=== PATIENT | male | born 1945 | race Caucasian/White ===

== ENCOUNTER → 2019-05-08 | Day surgery (SDC) | payer MEDICARE ==
[2019-05-08 13:31] LABS: RBC Count-Automated (BF) 7688 /cumm; WBC/Nucleated-Auto (BF) 26234 uL
[2019-05-08 13:32] LABS: BF Color Yellow; Body Fluid Source Synovial Fluid; Clarity Cloudy/Turbid (Clear)
[2019-05-08 13:52] LABS: BF Segmented Neutrophils 98 %; Cell Count Non Hematic 1 %; Lymphocytes 1 %
--- NOTE | 2019-05-08 14:53 | NM ---
NUCLEAR MEDICINE BONE SCAN 3 PHASE AND WHOLE BODY: (Skeletal scintigraphy) DATE: 05/08/2019 HISTORY: 74-year-old male with right hip pain. Suspected septic joint. TECHNIQUE: IV injection of technetium 99m-MDP: 31.7 mCi. Dynamic flow scintigraphy of pelvis. Static blood pool images of pelvis. 3 hour delayed whole body skeletal scintigraphy in anterior and posterior views. FINDINGS: There is increased blood flow and increased soft tissue uptake around the right hip, consistent with cellulitis. There is photopenic defect in the region of the right femoral head representing metallic prosthesis. Adjacent to this prosthesis, there is strongly increased three-hour bone uptake throughout the right acetabulum, and throughout the greater and lesser trochanters and intertrochanteric region down to the subtrochanteric level. Small focus of increased uptake at one of the levels in the upper-mid thoracic spine, approximately T 5, or T6, or T7. Small focus of mildly increased uptake at the contralateral left greater trochanter, nonspecific. No other asymmetrical foci of increased uptake. 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
--- NOTE | 2019-05-08 16:24 | CT ---
CT guided right hip aspiration: DATE: 05/08/2019 HISTORY: 74-year-old male with persistent right hip pain status post arthroplasty. TECHNIQUE: Signed informed consent obtained. Right groin skin prepped and draped in usual sterile fashion. 25-ga uge needle used to apply buffered lidocaine superficially. 22-gauge spinal needle advanced under step CT guidance from an anterior approach, targeting the neck component of the right hip replacement prosthesis. Once the needle tip contacted the prosthesis, a syringe was used to aspirate 2 to 5 mL of opaque, yellow joint fluid. This specimen was sent to laboratory for culture and sensitivity. Need le was removed. Patient tolerated procedure well. No complications. IMPRESSION: 1. Successful CT-guided aspiration of right hip. 2. Status post total right hip replacement arthroplasty. 3. Positive for septic arthritis of right hip joint.
== END ==
LOC: CT 08:29
PROVIDERS: ATTEND Orthopaedic Surgery
DX: M00.851 Arthritis due to other bacteria, right hip (principal); Z96.641 Presence of right artificial hip joint
CPT/HCPCS: 73700; 77002; 78315; 87070; 87205; 89051; A9503; 85060

== ENCOUNTER 2019-05-10 09:21 | Outpatient (CLI) | payer MEDICARE ==
[2019-05-10 16:49] LABS: Prothrombin Time 13.4 SEC (12.0-14.7)
--- NOTE | 2019-05-13 23:12 | EKG ---
Test Reason : Blood Pressure : / mmHG Vent. Rate : 081 BPM Atrial Rate : 081 BPM P-R Int : 170 ms QRS Dur : 086 ms QT Int : 392 ms P-R-T Axes : 009 038 003 degrees QTc Int : 455 ms Normal sinus rhythm Nonspecific T wave abnormality Abnormal ECG No previous ECGs available Confirmed by DARCI ROPER M.D. ([id number]) on 05/13/2019 11:12:06 PM Referred By: MATA Confirmed By:DARCI ROPER M.D.
== END 2019-05-10 09:22 | disposition home or self-care (01) ==
LOC: LABBT 09:21
PROVIDERS: ATTEND Orthopaedic Surgery
DX: Z01.818 Encounter for other preprocedural examination (principal); T84.51XA Infection and inflammatory reaction due to internal right hip prosthesis, initial encounter
CPT/HCPCS: 85610; 87081; 93005; 93010

== ENCOUNTER 2019-05-10 15:15 | Inpatient (IN) | payer MEDICARE ==
[2019-05-10 15:24] VITALS: BMI 32.6
[2019-05-10 16:43] LABS: Hemoglobin 14.9 g/dL (14.0-18.0); Mean Corpuscular HGB CONC 33.6 g/dL (32.0-36.0); Mean Corpuscular Hemoglobin 32.1 pg (27.0-31.0); Mean Corpuscular Volume 95.7 fL (78.0-98.0); Mean Platelet Volume 6.9 fL (7.4-10.4); Platelet Count 348 thou/uL (130-400); RBC Distribution Width 11.8 % (11.5-14.5); Red Blood Cell (RBC) Count 4.62 mill/uL (4.70-6.10)
[2019-05-10 17:06] LABS: Anion Gap 14 mmol/L (10-20); BUN (Urea Nitrogen) 23 mg/dL (8.4-25.7); Calc. Creatinine Clearance 0 mL/min (70-130); Carbon Dioxide 27 mmol/L (23-31); Chloride 101 mmol/L (98-107); Estimated GFR-MDRD 69; Glucose 115 mg/dL (83-110); Potassium 4.3 mmol/L (3.5-5.1); Sodium 138 mmol/L (136-145)
[2019-05-14] MEDS ORDERED: Tranexamic Acid 1,000 MG/10 ML VIAL ONE (10:02)
[2019-05-14] MEDS ORDERED: Sodium Chloride 0.9% 100 ML ONE (10:02)
[2019-05-14] MEDS ORDERED: Vancomycin HCl 1.5 GM in Sodium Chloride 0.9% 250 ML 300 ML IVPB SCH ×2 (10:15→10:30)
[2019-05-14] MEDS ORDERED: Promethazine HCl 25 MG/ML VIAL IM PRN ×3 (10:19→16:16)
[2019-05-14] MEDS ORDERED: Ondansetron PF 4 MG/2 ML Vial IVP PRN ×2 (10:19→11:45)
[2019-05-14] MEDS ORDERED: HYDROcodone/Acetaminophen 10/325 mg Tablet PO PRN ×2 (10:19)
[2019-05-14] MEDS ORDERED: Zolpidem Tartrate 5 MG TAB PO PRN ×2 (10:19→11:45)
[2019-05-14] MEDS ORDERED: diphenhydrAMINE 25 MG CAP PO PRN ×2 (10:19→11:45)
[2019-05-14] MEDS ORDERED: Acetaminophen 325 MG TAB PO PRN (10:19)
[2019-05-14] MEDS ORDERED: Fentanyl 100 MCG/2 ML VIAL ONE ×3 (11:07→16:28)
[2019-05-14] MEDS ORDERED: Midazolam HCl 2 mg/2 ml Vial ONE (11:07)
[2019-05-14] MEDS ORDERED: Scopolamine 1.5 mg/72 hour Patch ONE (11:33)
[2019-05-14] MEDS ORDERED: Acetaminophen 500 MG TAB PO PRN (11:38)
[2019-05-14] MEDS ORDERED: diphenhydrAMINE 50 MG/ML VIAL IVP PRN (11:45)
[2019-05-14] MEDS ORDERED: Naloxone HCl 0.4 mg/ml Vial IV PRN (11:45)
[2019-05-14] MEDS ORDERED: Naloxone HCl 0.4 mg/ml Vial IVP PRN (11:45)
[2019-05-14] MEDS ORDERED: Bupivacaine 0.25% 10 ML VIAL EPIDURAL PRN (11:45)
[2019-05-14] MEDS ORDERED: diphenhydrAMINE 50 MG/ML VIAL IM PRN (11:45)
[2019-05-14] MEDS ORDERED: Hydrocerin (Eucerin) Cream 120 gm Jar TOP PRN (11:45)
[2019-05-14] MEDS ORDERED: Promethazine HCl 25 MG SUPP PR PRN (11:45)
[2019-05-14] MEDS ORDERED: Scopolamine 1.5 mg/72 hour Patch TOP SCH (11:45)
[2019-05-14] MEDS ORDERED: traMADol HCl 50 MG TAB PO PRN (11:45)
[2019-05-14] MEDS ORDERED: Fentanyl 5 mcg/Bup 0.075% Cadd 100 ML EPIDURAL SCH (11:45)
[2019-05-14] MEDS ORDERED: Tobramycin Sulfate 1.2 GM VIAL ONE (12:18)
[2019-05-14] MEDS ORDERED: Ropivacaine 0.2% HCl/PF 20 ML ONE (12:49)
[2019-05-14] MEDS ORDERED: PROPOFOL 200 MG/20 ML VIAL ONE (15:16)
[2019-05-14] MEDS ORDERED: ePHEDrine 50 MG/ML VIAL ONE (15:16)
[2019-05-14] MEDS ORDERED: PHENYLEPHRINE-NS 100 MCG/ML 10 ML SYRINGE ONE (15:16)
[2019-05-14] MEDS ORDERED: Glycopyrrolate 0.2 MG/ML 5 ML SYRINGE ONE (15:16)
[2019-05-14] MEDS ORDERED: Ondansetron PF 4 MG/2 ML Vial ONE (15:16)
[2019-05-14] MEDS ORDERED: HYDROmorphone 2 MG/ML VIAL SLOW IVP PRN (16:16)
[2019-05-14] MEDS ORDERED: Promethazine HCl 25 MG/ML VIAL SLOW IVP PRN (16:16)
[2019-05-14] MEDS ORDERED: Morphine Sulfate 2 MG/ML SYRINGE SLOW IVP PRN (16:16)
[2019-05-14] MEDS ORDERED: Ondansetron HCl/PF 4 MG/2 ML Vial IVP PRN (16:16)
[2019-05-14] MEDS ORDERED: PACU-Morphine 4MG/ML VIAL SLOW IVP PRN (16:16)
[2019-05-14] MEDS ORDERED: Meperidine HCl/PF 25 MG/ML VIAL SLOW IVP PRN (16:16)
[2019-05-14] MEDS ORDERED: SUGAMMADEX SODIUM 200 MG/2 ML VIAL ONE (16:19)
--- NOTE | 2019-05-14 16:54 | RAD ---
RIGHT HIP: 05/14/19 Two views taken portably. INDICATIONS: Postop hip replacement evaluation. FINDINGS/IMPRESSION: Postop changes are noted. Prosthesis has been placed. Components appear in adequate position and alig nment. POS: THALIA
[2019-05-14] MEDS: Sodium Chloride 0.9% 1,000 ML IV SCH ×3 (18:08→20:41)
[2019-05-14] MEDS ORDERED: Acetaminophen 650 MG Suppository PR PRN (18:18)
[2019-05-14] MEDS ORDERED: Dextrose 50% Abboject 50 ML SYRINGE SLOW IVP PRN (18:29)
[2019-05-14] MEDS ORDERED: HumaLOG 300 UNITS/3 ML VIAL SC PRN ×2 (18:29)
[2019-05-14] MEDS ORDERED: Dextrose 5% in Water 1,000 ML IV PRN (18:29)
[2019-05-14] MEDS: Ketorolac Tromethamine 30 MG/ML VIAL IVP PRN (18:46)
[2019-05-14 19:20] LABS: #Lymphocytes 0.9 thou/uL (1.20-3.40); #Monocytes 1.1 thou/uL (0.11-0.59); #Neutrophils 14.7 thou/uL (1.40-6.50); %Basophils 0.1 % (0.0-1.0); %Eosinophils 0.3 % (0.0-10.0); %Lymphocytes 5.5 % (21.0-51.0); %Monocytes 6.6 % (0.0-10.0); %Neutrophils 87.6 % (42.0-75.0); Hemoglobin 12.4 g/dL (14.0-18.0); Mean Corpuscular HGB CONC 32.7 g/dL (32.0-36.0); Mean Corpuscular Hemoglobin 31.7 pg (27.0-31.0); Mean Corpuscular Volume 96.8 fL (78.0-98.0); Mean Platelet Volume 7.1 fL (7.4-10.4); Platelet Count 278 thou/uL (130-400); RBC Distribution Width 11.6 % (11.5-14.5); White Blood Cell (WBC) Count 16.7 thou/uL (4.8-10.8)
[2019-05-14 19:37] LABS: Lactic Acid 2.1 mmol/L (0.5-2.2)
[2019-05-14 19:39] LABS: Anion Gap 10 mmol/L (10-20); BUN (Urea Nitrogen) 11 mg/dL (8.4-25.7); Calc. Creatinine Clearance 122 mL/min (70-130); Calcium 8.2 mg/dL (7.8-10.44); Carbon Dioxide 26 mmol/L (23-31); Chloride 106 mmol/L (98-107); Estimated GFR-MDRD Greater than 90; Glucose 153 mg/dL (83-110); Potassium 4.3 mmol/L (3.5-5.1); Sodium 138 mmol/L (136-145)
[2019-05-14] MEDS: Ferrous Gluconate 324 MG TAB PO SCH (20:26)
[2019-05-14] MEDS: Ubidecarenone 50 MG CAP PO SCH (20:26)
[2019-05-14] MEDS: Senokot S 8.6-50 MG TAB PO SCH (20:26)
[2019-05-14] MEDS: Aspirin 81 mg Enteric Coated Tablet PO SCH (20:26)
[2019-05-14] MEDS: Famotidine/PF 20 mg/2ml Vial SLOW IVP SCH (20:27)
[2019-05-14] MEDS: Ezetimibe 10 MG TAB PO SCH (20:27)
[2019-05-14] MEDS: Rosuvastatin 20 MG TAB PO SCH (20:27)
[2019-05-14] MEDS ORDERED: Aspirin 81 mg Enteric Coated Tablet PO SCH (21:00)
--- NOTE | 2019-05-14 21:21 | CON ---
DATE OF CONSULTATION: 05/14/2019 TIME OF ASSESSMENT: 1700. REASON FOR CONSULTATION: Medical management. PRIMARY CARE PHYSICIAN: Dr. Waqar Child. HISTORY OF PRESENT ILLNESS: Mr. Gomez is a pleasant 74-year-old gentleman who is status post revision and replacement of right prosthetic hip due to septic joint. According to his significant other, the patient had removal with complete washout and debridement of the joint. Apparently, part of the muscles had to be removed due to the degree of infection. There is no operative note available at this time. Apparently, he last had revision of the right hip prosthesis in March and April of 2018 and more recently found to have recurrent infection after having persistent right hip pain. He underwent CT imaging on 05/08/2019, showing the total right hip replacement arthroplasty with changes consistent for septic arthritis of the right hip joint confirmed by CT-guided aspiration of the right hip. Specimen was sent to the lab and grew rare white blood cells. It was negative for MRSA. The patient had a bone scan done as well showing evidence for septic right hip and surrounding osteomyelitis of the right acetabulum and right proximal femur involving the right total hip replacement arthroplasty. At this present time, the patient states his pain is under control, but he has been experiencing some tightness with his breathing since waking up following surgery. He denies any chest pain. He states he feels slightly short of breath. Denies any cough. He has not yet had anything to eat. He is otherwise without complaints. According to his girlfriend, who was at bedside, he was on diuretics several years ago due to lower extremity edema; however, he was taken off it and felt he no longer required it. He also has a history of prediabetes, is managed with diet. He opted not to be placed on metformin and he states his glucose at home has been controlled under 180s. He also has a history of hypertension and hyperlipidemia. He follows with Dr. Gasca who is his technical implementation lead. REVIEW OF SYSTEMS: The patient denies any nausea or vomiting. Denies any headaches or dizziness. No chest pain or palpitations. Complaining of chills, but according to his girlfriend, he often feels cold. All other review of systems negative. PAST MEDICAL HISTORY: 1. Hypertension. 2. Hyperlipidemia. 3. Prediabetes. 4. Right hip infection. 5. CAD. PAST SURGICAL HISTORY: 1. Left facial reconstruction. 2. Cardiac stents. 3. Tonsillectomy and adenoidectomy. 4. Appendectomy. 5. Right total hip replacement x2. SOCIAL HISTORY: The patient denies any tobacco use. No heavy alcohol use. No drug use. FAMILY HISTORY: Noncontributory. PHYSICAL EXAMINATION: GENERAL: The patient appears well developed and in no acute distress. VITAL SIGNS: . HEENT: Normocephalic and atraumatic. Pupils are equal, round, and reactive to light. Sclerae without icterus. Oral mucosa is dry. He has a fever blister on the right lower lip well healed without any discharge, drainage, or bleeding. NECK: Supple. LUNGS: Clear to auscultation bilaterally. CARDIAC: Regular rate and rhythm. ABDOMEN: Soft, nontender, nondistended. Normoactive bowel sounds present. EXTREMITIES: Without any edema. NEUROLOGIC: Alert and oriented x3. SKIN: Warm and dry. LABORATORY DATA: On 05/10/2019, white count was 9, hemoglobin 14.9, hematocrit 44.2, platelets 348. Sodium 138, potassium 4.3, anion gap 14, BUN 23, creatinine 1.05, GFR 69, glucose 115, calcium 9. IMAGING DATA: As mentioned above. IMPRESSION AND PLAN: 1. Mr. Gomez is a pleasant 74-year-old gentleman who has undergone right total hip replacement x2 due to persistent prosthesis infection. He has now undergone replacement of the prosthesis with complete joint washout due to septic joint. Plans are for him to be seen by Dr. Sena and continue vancomycin. Currently . Currently, his pain is well controlled. Repeat laboratory studies including lactic acid and also BMP given history of fluid overload. . 2. Hypertension. Monitor blood pressure and resume home medications. 3. Prediabetes. Monitor blood glucose and cover with insulin sliding scale given he is usually on steroids. 4. GI prophylaxis. Famotidine . 5. Deep venous thrombosis prophylaxis. Mechanical SCDs only. Contraindication for pharmacoprophylaxis. 6. Code status, full. His surrogate decision maker is his girlfriend, Nunu Cruz. The patient's case to be discussed with attending for further recommendations. . Thank you for this consultation. We will continue to follow this patient with you. Job ID: [id number]
[2019-05-14] MEDS: Vancomycin HCl 1.5 GM in Sodium Chloride 0.9% 250 ML 300 ML IVPB SCH (22:32)
[2019-05-15 04:38] LABS: #Lymphocytes 1.1 thou/uL (1.20-3.40); #Neutrophils 8.3 thou/uL (1.40-6.50); %Basophils 0.3 % (0.0-1.0); %Eosinophils 0.2 % (0.0-10.0); %Lymphocytes 10.6 % (21.0-51.0); %Monocytes 9.1 % (0.0-10.0); %Neutrophils 79.7 % (42.0-75.0); Mean Corpuscular HGB CONC 33.2 g/dL (32.0-36.0); Mean Corpuscular Hemoglobin 32.1 pg (27.0-31.0); Mean Corpuscular Volume 96.6 fL (78.0-98.0); Mean Platelet Volume 7.3 fL (7.4-10.4); Platelet Count 265 thou/uL (130-400); RBC Distribution Width 11.8 % (11.5-14.5); Red Blood Cell (RBC) Count 3.43 mill/uL (4.70-6.10); White Blood Cell (WBC) Count 10.4 thou/uL (4.8-10.8)
[2019-05-15 04:53] LABS: Anion Gap 11 mmol/L (10-20); BUN (Urea Nitrogen) 14 mg/dL (8.4-25.7); Calc. Creatinine Clearance 98 mL/min (70-130); Calcium 7.8 mg/dL (7.8-10.44); Carbon Dioxide 27 mmol/L (23-31); Chloride 104 mmol/L (98-107); Estimated GFR-MDRD 72; Glucose 172 mg/dL (83-110); Potassium 4.7 mmol/L (3.5-5.1); Sodium 137 mmol/L (136-145)
[2019-05-15] MEDS: Aspirin 81 mg Enteric Coated Tablet PO SCH ×2 (08:20→20:06)
[2019-05-15] MEDS: Famotidine/PF 20 mg/2ml Vial SLOW IVP SCH ×2 (08:21→20:07)
[2019-05-15] MEDS: Multivitamin W/ Minerals 1 TAB PO SCH (08:21)
[2019-05-15] MEDS: Ubidecarenone 50 MG CAP PO SCH ×2 (08:21→20:06)
[2019-05-15] MEDS: Ferrous Gluconate 324 MG TAB PO SCH ×2 (08:21→20:06)
[2019-05-15] MEDS: Losartan 25 MG TAB PO SCH (08:22)
[2019-05-15] MEDS: Senokot S 8.6-50 MG TAB PO SCH ×2 (08:30→20:07)
--- NOTE | 2019-05-15 08:47 | OP ---
DATE OF PROCEDURE: 05/14/2019 PREOPERATIVE DIAGNOSIS: Infected right total hip. PROCEDURES PERFORMED: Revision of right total hip for infection with cemented 60 mm all-polyethylene cup #7, reliance a long stem revision component and a 40 mm +10 head. ROOFER APPLICATOR: Kg Hussein PA-C BLOOD LOSS: About 500. SPECIMEN: Cultures including tissue culture sent. DRAINS: None. COMPLICATION: None. DESCRIPTION OF PROCEDURE: The patient was taken to the operating room, where general anesthesia was induced. Left leg was prepped and draped in usual sterile fashion. He had a previous anterior approach at another [facility]. Chose to use the lateral approach, which was more extensile. Standard anterolateral approach was made. Incision was carried down to the joint, joint was opened and the joint was 4+, which was somewhat thin watery type pus. I performed a complete synovectomy after dislocating the femur and removing the head. The femur was quite difficult to remove and had to perform an osteotomy of the femur, which I then repaired with Dall-Miles cables. The acetabulum was exposed and removed using intermittent cup extraction kit. Irrigation was performed. I reamed the acetabulum up to 60. I mixed up a mixture of tobramycin-laden cement with 3.4 total grams of tobra and 3 g of vancomycin and used this to cement the cup into place. Once the cement was cured, I turned my attention back to the femur and reamed the femur up to a size 14.5 with flexible reamers to completely debride the end ostium of the bone. I used large reamers to ream the proximal femur and scraped all possible infected bone from the femur. #7 stem was then cemented into place. Trial showed a +10 head gave the best leg length with good stability. The permanent stem was impacted in place. Hip was reduced. The femur had been repaired with Dall-Miles cables and this appeared to be a good stable fixation, so they could be already 50% weightbearing, abductors, vastus lateralis, and IT band were interrupted with #2 Vicryl. #2 Quill was then used on the IT band, subcutaneous tissues with 2-0 Vicryl, and skin was closed with 2-0 Prolene. Sterile dressings were applied. There were no complications. Job ID: [id number]
[2019-05-15] MEDS ORDERED: ALPHA LIPOIC ACID 600 MG PO SCH (09:00)
[2019-05-15] MEDS: Sodium Chloride 0.9% 1,000 ML IV SCH ×3 (09:06→23:15)
--- NOTE | 2019-05-15 10:05 | PDOC.HOSPP ---
- Subjective Encounter Date: 05/15/19 Encounter Time: 10:03 Subjective: Doing well, just had shower. - Objective Vital Signs & Weight: Vital Signs (12 hours) Temp Pulse Resp BP Pulse Ox 05/15/19 08:20 94 L 05/15/19 08:19 98.5 F 109 H 18 101/66 94 L 05/15/19 03:22 98.9 F 100 16 99/64 95 05/14/19 22:56 98.8 F 98 16 100/65 93 L Weight Weight 234 lb I&O: 05/14/19 05/15/19 05/16/19 06:59 06:59 06:59 Intake Total 1040 320 Output Total 425 Balance 615 320 Result Diagrams: 05/15/19 04:00 05/15/19 04:00 Additional Labs: Accuchecks 05/15/19 05/14/19 05:25 21:13 POC Glucose 174 H 139 H Hospitalist ROS - Medication Medications: Active Medications Generic Name Dose Route Start Last Admin Trade Name Eben PRN Reason Stop Dose Admin Aspirin 81 mg 05/14/19 21:00 05/15/19 08:20 Ecotrin PO 81 mg BID ELZBIETA Administration Cholecalciferol 1,000 units 05/14/19 21:00 05/15/19 08:21 Vitamin D3 PO 1,000 units BID ELZBIETA Administration Coenzyme Q10 50 mg 05/14/19 21:00 05/15/19 08:21 Coenzyme Q10 PO 50 mg BID ELZBIETA Administration Ezetimibe 10 mg 05/14/19 21:00 05/14/19 20:27 Zetia PO 10 mg HS ELZBIETA Administration Famotidine 20 mg 05/14/19 21:00 05/15/19 08:21 Pepcid SLOW IVP 20 mg Q12HR ELZBIETA Administration Ferrous Gluconate 324 mg 05/14/19 21:00 05/15/19 08:21 Fergon PO 324 mg BID ELZBIETA Administration Fentanyl Citrate 100 mls @ 6 mls/hr 05/14/19 11:45 05/15/19 05:42 Fentanyl/Bupivacaine EPIDURAL 100 mls INF ELZBIETA Administration As Directed Vancomycin HCl 1.5 gm/ Sodium 300 mls @ 200 mls/hr 05/14/19 23:00 05/14/19 22 :32 Chloride IVPB 300 mls 1100,2300 ELZBIETA Administration Sodium Chloride 1,000 mls @ 65 mls/hr 05/14/19 19:45 05/14/19 20:23 Normal Saline 0.9% IV 1,000 mls .[id number] ELZBIETA Administration Iron/Minerals/Multivitamins 1 tab 05/15/19 09:00 05/15/19 08:21 Theragran M PO 1 tab DAILY ELZBIETA Administration Ketorolac Tromethamine 15 mg 05/14/19 11:45 05/14/19 18:46 Toradol IVP 05/17/19 11:46 15 mg Q6H PRN Administration Moderate Pain (4-6) Losartan Potassium 50 mg 05/15/19 09:00 05/15/19 08:22 Cozaar PO Not Given DAILY ELZBIETA Metoprolol Succinate 25 mg 05/14/19 21:00 05/14/19 20:25 Toprol Xl PO Not Given HS ELZBIETA Rosuvastatin Calcium 40 mg 05/14/19 21:00 05/14/19 20:27 Crestor PO 40 mg HS ELZBIETA Administration Senna/Docusate Sodium 2 tab 05/14/19 21:00 05/15/19 08:30 Senokot S PO Not Given BID ELZBIETA - Exam General Appearance: NAD, awake alert, ill appearing Eye: PERRL, anicteric sclera, scleral icterus ENT: normocephalic atraumatic, no oropharyngeal lesions, moist mucosa, dry oral mucosa Neck: supple, symmetric, no JVD, no thyromegaly, no lymphadenopathy, no carotid bruit, JVD Heart: RRR, no murmur, no gallops, no rubs, normal peripheral pulses, irregular , diminshed peripheral pulses, murmur present, II/IV, III/IV Respiratory: CTAB, no wheezes, no rales, no ronchi, normal chest expansion, no tachypnea, normal percussion, rales, rhonchi, tachypneic, wheezes Gastrointestinal: soft, non-tender, non-distended, normal bowel sounds, no palpable masses, no hepatomegaly, no splenomegaly, no bruit, no guarding, no rigidity, tender to palpation, distended, diminished bowl sounds, voluntary guarding Hosp A/P (1) Leukocytosis Code(s): D72.829 - ELEVATED WHITE BLOOD CELL COUNT, UNSPECIFIED Status: Acute Plan: the WBC imroved, continue current antibiotics (2) HTN (hypertension) Code(s): I10 - ESSENTIAL (PRIMARY) HYPERTENSION Status: Acute Plan: continue current regimen
[2019-05-15] MEDS: Vancomycin HCl 1.5 GM in Sodium Chloride 0.9% 250 ML 300 ML IVPB SCH ×2 (11:14→22:01)
[2019-05-15] MEDS: Bupivacaine 10 ML in Sodium Chloride 0.9% 90 ML EPIDURAL SCH (16:35)
--- NOTE | 2019-05-15 16:40 | CON ---
DATE OF CONSULTATION: 05/15/2019 REASON: Right hip infection. HISTORY OF PRESENT ILLNESS: A 74-year-old gentleman known to me from prior visits at [facility] and my clinic who has a history of type 2 diabetes, hypertension, hyperlipidemia, and had a previous hip prosthesis placed in [facility]. He had a revision with washout in March 2018, Propionibacterium species was retrieved from the cultures. He was treated with vancomycin and then transitioned to oral suppressive therapy with doxycycline which he had been taken until this admission. He was having some stiffness but not much pain. No fever or chills. His CRP was down to 0.7 and he had continued taking doxycycline faithfully when I last saw him in March. He was not happy with the functional results of the right hip and he wanted a second opinion, so I suggested him to consult with Dr. Melgar, which he did. He had a CT-guided aspirate of the hip and had a small amount of fluid in the joint and Dr. Melgar removed the implant yesterday. The operative report was reviewed. The lateral approach was chosen and incision carried out through the joint, joint opened, and there was some thin watery cloudy fluid. Complete synovectomy was carried out. Head was removed. The femur was difficult to remove and had to perform an osteotomy of the femur and then it was repaired. Acetabulum was exposed and removed and tobramycin with vancomycin cement was placed in the cup. The femur site was reamed to a size of 14.5 and all possible infected bone was removed and the stem was impacted in place, hip reduced. He is a bit confused now. He had some delusional thinking process, he derecognized me. He denies any headaches, no visual symptoms, sore throat, odynophagia, dysphagia, no dyspnea or chest pain. No abdominal pain or diarrhea or genitourinary symptoms except for Sibley catheter. 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 He had been on suppressive doxycycline for the past year or so. Coronary artery disease. SURGICAL HISTORY: Facial reconstruction, cardiac stents, tonsillectomy, appendectomy, hip replacement. SOCIAL HISTORY: Retired. I believe he lives in [place]. Never smoker. No alcoholic beverage use. FAMILY HISTORY: Noncontributory. CURRENT MEDICATIONS: 1. Tylenol. 2. Ecotrin. 3. Vitamin D. 4. Coenzyme Q. 5. Benadryl. 6. Hydrocerin. 7. Fentanyl. 8. Fergon. 9. Glucagon. 10. Theragran. 11. Cozaar. 12. Metoprolol. 13. Zofran. 14. Phenergan. 15. Sodium. 16. Tramadol. 17. Vancomycin. PHYSICAL EXAMINATION: VITAL SIGNS: Temperature max 98.9, blood pressure 96/56, pulse 88, respirations 18, O2 saturation 94 on 2 L nasal cannula. SKIN: Shows the surgical site. I did not remove the dressing. The patient has a peripheral IV access and has a Sibley catheter in place still. LYMPHS: No lymphadenopathy. HEENT: Ocular movements conjugate. Oral cavity normal. NECK: Supple. LUNGS: Symmetric, clear breath sounds. HEART: S1, S2, regular rate. ABDOMEN: Soft, not distended or tender. No ascites. No bladder distention. EXTREMITIES: He moves all 4 extremities with some limitations because of the inflammatory process in right hip and the recent surgical procedure. NEUROLOGIC: He is awake, knows his name. He knew he was in [facility]. His recollection was a little bit faulty and has some delusional thinking process, was a bit delirious. LABORATORY DATA: White cell count is 9.0, went up to 16.7 postoperatively and then 10.4 at this time. Hemoglobin 11, platelets 265 with 79% neutrophils and a creatinine of 1.02. Cultures thus far no growth. Gram stain did not show any organisms. Rare WBCs were seen. 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 He underwent a CT-guided aspirate, which showed the findings suggestive of persistence of infection, had extensive debridement and a new joint placed and we will continue vancomycin assuming that Propionibacterium is the likely pathogen here. After the initial therapy course, we will then transition back to doxycycline suppressive therapy. PICC line placement and probably will end up in rehab for at least 2 weeks and after that then back home with long-term IV therapy. Weekly labs. Job ID: [id number]
[2019-05-15] MEDS: Acetaminophen 325 MG TAB PO SCH ×2 (18:33→23:14)
[2019-05-15] MEDS: Rosuvastatin 20 MG TAB PO SCH (20:07)
[2019-05-15] MEDS: Ezetimibe 10 MG TAB PO SCH (20:07)
[2019-05-15] MEDS: Ketorolac Tromethamine 30 MG/ML VIAL IVP PRN (21:54)
[2019-05-15 22:36] LABS: Vancomycin, Trough 13.3 ug/mL
[2019-05-16] MEDS: Acetaminophen 325 MG TAB PO SCH ×4 (04:59→23:00)
[2019-05-16 05:16] LABS: Hemoglobin 8.7 g/dL (14.0-18.0); Mean Corpuscular HGB CONC 33.9 g/dL (32.0-36.0); Mean Corpuscular Hemoglobin 32.3 pg (27.0-31.0); Mean Corpuscular Volume 95.2 fL (78.0-98.0); Mean Platelet Volume 7.3 fL (7.4-10.4); Platelet Count 203 thou/uL (130-400); RBC Distribution Width 11.5 % (11.5-14.5); Red Blood Cell (RBC) Count 2.69 mill/uL (4.70-6.10); White Blood Cell (WBC) Count 10.6 thou/uL (4.8-10.8)
--- NOTE | 2019-05-16 09:48 | SPC ---
LEFT UPPER EXTREMITY PICC LINE PLACEMENT WITH ULTRASOUND GUIDANCE: HISTORY: Infection. EXPOSURE: 0.4 minutes 4560 mGy/cm2 FINDINGS: Successful left upper cavity PICC line placement. 49 cm trim length. Distal tip is in the SVC/right a trial junction. Single-lumen catheter flushes and aspirates without difficulty. TECHNIQUE: Consent obtained to perform a left upper extremity PICC line placement with ultrasound guidance. The left arm was prepped and draped in a sterile fashion. Lidocaine 1% buffered with sodium bicarbonate was used for local anesthesia. Under ultrasound guidance a micropuncture needle was used to cannulate the basilic vein. A 0.018 guidewire was advanced through the needle to the level of the superior vena cava. Under fluoroscopy, the wire was advanced into the inferior vena cava to document venous ac cess. The wire was subsequently pulled back to the SVC/right atrial junction. The tract was dilated. A single lumen 5 Hungarian catheter was advanced over the wire. The wire was removed. Catheter flushes and aspirates without difficulty. Distal tip is in the SVC/right atrial junction. 49 cm trim length IMPRESSION: Successful left upper extremity peripherally inserted central catheter line placement with ultrasound guidance. Transcribed Date/Time: 05/16/2019 10:15 AM
[2019-05-16] MEDS: Senokot S 8.6-50 MG TAB PO SCH ×2 (09:50→20:14)
[2019-05-16] MEDS: Losartan 25 MG TAB PO SCH (09:50)
[2019-05-16] MEDS: Ferrous Gluconate 324 MG TAB PO SCH ×2 (09:50→20:14)
[2019-05-16] MEDS: Aspirin 81 mg Enteric Coated Tablet PO SCH ×2 (09:50→20:14)
[2019-05-16] MEDS: Ubidecarenone 50 MG CAP PO SCH ×2 (09:50→20:14)
[2019-05-16] MEDS: Multivitamin W/ Minerals 1 TAB PO SCH (09:50)
[2019-05-16] MEDS: Famotidine/PF 20 mg/2ml Vial SLOW IVP SCH ×2 (09:51→20:14)
[2019-05-16] MEDS: Bupivacaine 10 ML in Sodium Chloride 0.9% 90 ML EPIDURAL SCH ×3 (10:57→22:57)
[2019-05-16] MEDS: Vancomycin HCl 1.5 GM in Sodium Chloride 0.9% 250 ML 300 ML IVPB SCH ×2 (11:11→23:01)
--- NOTE | 2019-05-16 15:20 | PDOC.HOSPP ---
- Subjective Encounter Date: 05/16/19 Encounter Time: 15:19 - Objective Vital Signs & Weight: Vital Signs (12 hours) Temp Pulse Resp BP Pulse Ox 05/16/19 12:26 94 L 05/16/19 12:22 98.5 F 102 H 18 112/64 94 L 05/16/19 08:00 99.0 F 87 16 111/66 91 L 05/16/19 03:44 93 L 05/16/19 03:38 98.3 F 81 16 109/71 93 L Weight Weight 234 lb I&O: 05/15/19 05/16/19 05/17/19 06:59 06:59 06:59 Intake Total 1040 4250 120 Output Total 425 1325 875 Balance 247 8546 -907 Result Diagrams: 05/16/19 04:21 05/15/19 04:00 Additional Labs: Accuchecks 05/16/19 05/16/19 05/15/19 11:06 05:28 20:47 POC Glucose 119 H 151 H 139 H 05/15/19 15:58 POC Glucose 165 H Hospitalist ROS - Medication Medications: Active Medications Generic Name Dose Route Start Last Admin Trade Name Freq PRN Reason Stop Dose Admin Acetaminophen 650 mg 05/15/19 18:00 05/16/19 11:11 Tylenol PO 650 mg Q6HR ELZBIETA Administration Aspirin 81 mg 05/14/19 21:00 05/16/19 09:50 Ecotrin PO 81 mg BID ELZBIETA Administration Cholecalciferol 1,000 units 05/14/19 21:00 05/16/19 09:50 Vitamin D3 PO 1,000 units BID ELZBIETA Administration Coenzyme Q10 50 mg 05/14/19 21:00 05/16/19 09:50 Coenzyme Q10 PO 50 mg BID ELZBIETA Administration Diphenhydramine HCl 25 mg 05/14/19 10:19 05/15/19 21:54 Benadryl PO 25 mg Q6H PRN Administration Itching Ezetimibe 10 mg 05/14/19 21:00 05/15/19 20:07 Zetia PO 10 mg HS ELZBIETA Administration Famotidine 20 mg 05/14/19 21:00 05/16/19 09:51 Pepcid SLOW IVP 20 mg Q12HR ELZBIETA Administration Ferrous Gluconate 324 mg 05/14/19 21:00 05/16/19 09:50 Fergon PO 324 mg BID ELZBIETA Administration Vancomycin HCl 1.5 gm/ Sodium 300 mls @ 200 mls/hr 05/14/19 23:00 05/16/19 11 :11 Chloride IVPB 300 mls 1100,2300 ELZBIETA Administration Sodium Chloride 1,000 mls @ 65 mls/hr 05/14/19 19:45 05/15/19 23:15 Normal Saline 0.9% IV Not Given .[id number] ELZBIETA Bupivacaine HCl 10 ml/ Sodium 100 mls @ 6 mls/hr 05/15/19 15:30 05/16/19 10: 58 Chloride EPIDURAL 100 mls INF ELZBIETA Administration Iron/Minerals/Multivitamins 1 tab 05/15/19 09:00 05/16/19 09:50 Theragran M PO 1 tab DAILY ELZBIETA Administration Ketorolac Tromethamine 15 mg 05/14/19 11:45 05/15/19 21:54 Toradol IVP 05/17/19 11:46 15 mg Q6H PRN Administration Moderate Pain (4-6) Losartan Potassium 50 mg 05/15/19 09:00 05/16/19 09:50 Cozaar PO 50 mg DAILY ELZBIETA Administration Metoprolol Succinate 25 mg 05/14/19 21:00 05/15/19 20:07 Toprol Xl PO 25 mg HS ELZBIETA Administration Rosuvastatin Calcium 40 mg 05/14/19 21:00 05/15/19 20:07 Crestor PO 40 mg HS ELZBIETA Administration Senna/Docusate Sodium 2 tab 05/14/19 21:00 05/16/19 09:50 Senokot S PO 2 tab BID ELZBIETA Administration - Exam General Appearance: NAD, awake alert, ill appearing Eye: PERRL, anicteric sclera, scleral icterus ENT: normocephalic atraumatic, no oropharyngeal lesions, moist mucosa, dry oral mucosa Neck: supple, symmetric, no JVD, no thyromegaly, no lymphadenopathy, no carotid bruit, JVD Heart: RRR, no murmur, no gallops, no rubs, normal peripheral pulses, irregular , diminshed peripheral pulses, murmur present, II/IV, III/IV Respiratory: CTAB, no wheezes, no rales, no ronchi, normal chest expansion, no tachypnea, normal percussion, rales, rhonchi, tachypneic, wheezes Gastrointestinal: soft, non-tender, non-distended, normal bowel sounds, no palpable masses, no hepatomegaly, no splenomegaly, no bruit, no guarding, no rigidity, tender to palpation, distended, diminished bowl sounds, voluntary guarding Hosp A/P (1) Leukocytosis Code(s): D72.829 - ELEVATED WHITE BLOOD CELL COUNT, UNSPECIFIED Status: Acute (2) HTN (hypertension) Code(s): I10 - ESSENTIAL (PRIMARY) HYPERTENSION Status: Acute - Plan plan discussed w/ family (LTC vs SNf vs home IV antibiotics. I think he will be benifitted from LTAC)
[2019-05-16] MEDS: Sodium Chloride 0.9% 1,000 ML IV SCH (17:26)
[2019-05-16] MEDS: Tamsulosin HCl 0.4 MG CAP PO SCH (20:14)
[2019-05-16] MEDS: Rosuvastatin 20 MG TAB PO SCH (20:14)
[2019-05-16] MEDS: Ezetimibe 10 MG TAB PO SCH (20:14)
[2019-05-17 04:59] LABS: Hemoglobin 7.7 g/dL (14.0-18.0); Mean Corpuscular HGB CONC 33.3 g/dL (32.0-36.0); Mean Corpuscular Hemoglobin 31.6 pg (27.0-31.0); Mean Platelet Volume 6.8 fL (7.4-10.4); Platelet Count 187 thou/uL (130-400); RBC Distribution Width 11.5 % (11.5-14.5); Red Blood Cell (RBC) Count 2.42 mill/uL (4.70-6.10); White Blood Cell (WBC) Count 7.6 thou/uL (4.8-10.8)
[2019-05-17] MEDS: Acetaminophen 325 MG TAB PO SCH ×3 (05:47→18:44)
[2019-05-17] MEDS: Aspirin 81 mg Enteric Coated Tablet PO SCH ×2 (09:09→21:17)
[2019-05-17] MEDS: Famotidine/PF 20 mg/2ml Vial SLOW IVP SCH ×2 (09:10→21:18)
[2019-05-17] MEDS: Multivitamin W/ Minerals 1 TAB PO SCH (09:10)
[2019-05-17] MEDS: Ferrous Gluconate 324 MG TAB PO SCH ×2 (09:10→21:17)
[2019-05-17] MEDS: Senokot S 8.6-50 MG TAB PO SCH ×2 (09:10→21:17)
[2019-05-17] MEDS: Losartan 25 MG TAB PO SCH (09:10)
[2019-05-17] MEDS: Ubidecarenone 50 MG CAP PO SCH ×2 (09:10→21:17)
[2019-05-17] MEDS: Sodium Chloride 0.9% 1,000 ML IV SCH (09:22)
[2019-05-17] MEDS ORDERED: Heparin 1,000 UNITS/ML VIAL ONE (11:11)
[2019-05-17 11:53] LABS: Vancomycin, Trough 15.7 ug/mL
[2019-05-17] MEDS: Vancomycin HCl 1.5 GM in Sodium Chloride 0.9% 250 ML 300 ML IVPB SCH ×2 (11:59→22:10)
--- NOTE | 2019-05-17 14:34 | PDOC.HOSPP ---
- Subjective Encounter Date: 05/17/19 Encounter Time: 14:33 Subjective: The patient is still contemplating wether he would like to got LTAC vs home for IV antibiotics - Objective Vital Signs & Weight: Vital Signs (12 hours) Temp Pulse Resp BP Pulse Ox 05/17/19 07:30 98.5 F 84 10 L 130/67 93 L 05/17/19 03:24 98.0 F 76 16 107/66 91 L Weight Weight 234 lb I&O: 05/16/19 05/17/19 05/18/19 06:59 06:59 06:59 Intake Total 4250 360 Output Total 1325 1600 500 Balance 2109 -4990 -500 Result Diagrams: 05/17/19 04:19 05/15/19 04:00 Additional Labs: Accuchecks 05/17/19 05/16/19 05/16/19 05:34 20:37 15:59 POC Glucose 124 H 200 H 165 H Hospitalist ROS - Medication Medications: Active Medications Generic Name Dose Route Start Last Admin Trade Name Eben PRN Reason Stop Dose Admin Acetaminophen 650 mg 05/15/19 18:00 05/17/19 12:00 Tylenol PO 650 mg Q6HR ELZBIETA Administration Aspirin 81 mg 05/14/19 21:00 05/17/19 09:09 Ecotrin PO 81 mg BID ELZBIETA Administration Cholecalciferol 1,000 units 05/14/19 21:00 05/17/19 09:09 Vitamin D3 PO 1,000 units BID ELZBIETA Administration Coenzyme Q10 50 mg 05/14/19 21:00 05/17/19 09:10 Coenzyme Q10 PO 50 mg BID ELZBIETA Administration Diphenhydramine HCl 25 mg 05/14/19 10:19 05/15/19 21:54 Benadryl PO 25 mg Q6H PRN Administration Itching Ezetimibe 10 mg 05/14/19 21:00 05/16/19 20:14 Zetia PO 10 mg HS ELZBIETA Administration Famotidine 20 mg 05/14/19 21:00 05/17/19 09:10 Pepcid SLOW IVP 20 mg Q12HR ELZBIETA Administration Ferrous Gluconate 324 mg 05/14/19 21:00 05/17/19 09:10 Fergon PO 324 mg BID ELZBIETA Administration Vancomycin HCl 1.5 gm/ Sodium 300 mls @ 200 mls/hr 05/14/19 23:00 05/17/19 11 :59 Chloride IVPB 300 mls 1100,2300 ELZBIETA Administration Sodium Chloride 1,000 mls @ 65 mls/hr 05/14/19 19:45 05/17/19 09:22 Normal Saline 0.9% IV Not Given .[id number] ELZBIETA Bupivacaine HCl 10 ml/ Sodium 100 mls @ 6 mls/hr 05/15/19 15:30 05/16/19 22: 57 Chloride EPIDURAL 100 mls INF ELZBIETA Administration Iron/Minerals/Multivitamins 1 tab 05/15/19 09:00 05/17/19 09:10 Theragran M PO 1 tab DAILY ELZBIETA Administration Losartan Potassium 50 mg 05/15/19 09:00 05/17/19 09:10 Cozaar PO 50 mg DAILY ELZBIETA Administration Metoprolol Succinate 25 mg 05/14/19 21:00 05/16/19 20:14 Toprol Xl PO 25 mg HS ELZBIETA Administration Rosuvastatin Calcium 40 mg 05/14/19 21:00 05/16/19 20:14 Crestor PO 40 mg HS ELZBIETA Administration Senna/Docusate Sodium 2 tab 05/14/19 21:00 05/17/19 09:10 Senokot S PO 2 tab BID ELZBIETA Administration Tamsulosin HCl 0.4 mg 05/16/19 21:00 05/16/19 20:14 Flomax PO 0.4 mg HS ELZBIETA Administration Tramadol HCl 100 mg 05/14/19 11:45 05/17/19 09:19 Ultram PO 100 mg Q6H PRN Administration Moderate Pain 4-6 - Exam General Appearance: NAD, awake alert, ill appearing Eye: PERRL, anicteric sclera, scleral icterus ENT: normocephalic atraumatic, no oropharyngeal lesions, moist mucosa, dry oral mucosa Neck: supple, symmetric, no JVD, no thyromegaly, no lymphadenopathy, no carotid bruit, JVD Heart: RRR, no murmur, no gallops, no rubs, normal peripheral pulses, irregular , diminshed peripheral pulses, murmur present, II/IV, III/IV Respiratory: CTAB, no wheezes, no rales, no ronchi, normal chest expansion, no tachypnea, normal percussion, rales, rhonchi, tachypneic, wheezes Gastrointestinal: soft, non-tender, non-distended, normal bowel sounds, no palpable masses, no hepatomegaly, no splenomegaly, no bruit, no guarding, no rigidity, tender to palpation, distended, diminished bowl sounds, voluntary guarding Hosp A/P (1) Leukocytosis Code(s): D72.829 - ELEVATED WHITE BLOOD CELL COUNT, UNSPECIFIED Status: Acute (2) HTN (hypertension) Code(s): I10 - ESSENTIAL (PRIMARY) HYPERTENSION Status: Acute Plan: continue antibiotics as per ID recomendations
[2019-05-17] MEDS: Ezetimibe 10 MG TAB PO SCH (21:17)
[2019-05-17] MEDS: Rosuvastatin 20 MG TAB PO SCH (21:17)
[2019-05-17] MEDS: Tamsulosin HCl 0.4 MG CAP PO SCH (21:18)
[2019-05-18] MEDS: Sodium Chloride 0.9% 1,000 ML IV SCH ×2 (00:59→17:51)
[2019-05-18] MEDS: Acetaminophen 325 MG TAB PO SCH ×4 (00:59→17:31)
[2019-05-18 05:09] LABS: Hemoglobin 7.9 g/dL (14.0-18.0); Mean Corpuscular Hemoglobin 32.3 pg (27.0-31.0); Mean Corpuscular Volume 95.1 fL (78.0-98.0); Mean Platelet Volume 6.6 fL (7.4-10.4); Platelet Count 227 thou/uL (130-400); RBC Distribution Width 11.5 % (11.5-14.5); Red Blood Cell (RBC) Count 2.45 mill/uL (4.70-6.10)
[2019-05-18] MEDS: Famotidine/PF 20 mg/2ml Vial SLOW IVP SCH ×2 (08:16→20:24)
[2019-05-18] MEDS: Senokot S 8.6-50 MG TAB PO SCH ×2 (08:16→20:25)
[2019-05-18] MEDS: Multivitamin W/ Minerals 1 TAB PO SCH (08:16)
[2019-05-18] MEDS: Aspirin 81 mg Enteric Coated Tablet PO SCH ×2 (08:16→20:25)
[2019-05-18] MEDS: Ubidecarenone 50 MG CAP PO SCH ×2 (08:16→20:25)
[2019-05-18] MEDS: Ferrous Gluconate 324 MG TAB PO SCH ×2 (08:17→20:25)
[2019-05-18] MEDS: Losartan 25 MG TAB PO SCH (08:17)
[2019-05-18] MEDS: Vancomycin HCl 1.5 GM in Sodium Chloride 0.9% 250 ML 300 ML IVPB SCH ×2 (11:37→22:02)
[2019-05-18] MEDS: traMADol HCl 50 MG TAB PO PRN (14:57)
[2019-05-18] MEDS: Tamsulosin HCl 0.4 MG CAP PO SCH (20:25)
[2019-05-18] MEDS: Ezetimibe 10 MG TAB PO SCH (20:25)
[2019-05-18] MEDS: Rosuvastatin 20 MG TAB PO SCH (20:25)
[2019-05-19] MEDS: Acetaminophen 325 MG TAB PO SCH ×4 (00:59→17:35)
[2019-05-19] MEDS: traMADol HCl 50 MG TAB PO PRN ×2 (06:27→17:35)
[2019-05-19 07:24] LABS: Hemoglobin 7.7 g/dL (14.0-18.0); Mean Corpuscular HGB CONC 32.5 g/dL (32.0-36.0); Mean Corpuscular Hemoglobin 30.8 pg (27.0-31.0); Mean Corpuscular Volume 94.6 fL (78.0-98.0); Mean Platelet Volume 6.1 fL (7.4-10.4); Platelet Count 247 thou/uL (130-400); RBC Distribution Width 11.8 % (11.5-14.5); White Blood Cell (WBC) Count 6.5 thou/uL (4.8-10.8)
[2019-05-19] MEDS: Losartan 25 MG TAB PO SCH (08:13)
[2019-05-19] MEDS: Ubidecarenone 50 MG CAP PO SCH (08:13)
[2019-05-19] MEDS: Multivitamin W/ Minerals 1 TAB PO SCH (08:14)
[2019-05-19] MEDS: Famotidine/PF 20 mg/2ml Vial SLOW IVP SCH (08:14)
[2019-05-19] MEDS: Senokot S 8.6-50 MG TAB PO SCH (08:14)
[2019-05-19] MEDS: Aspirin 81 mg Enteric Coated Tablet PO SCH (08:14)
[2019-05-19] MEDS: Ferrous Gluconate 324 MG TAB PO SCH (08:14)
[2019-05-19] MEDS: Sodium Chloride 0.9% 1,000 ML IV SCH (08:22)
[2019-05-19] MEDS: Vancomycin HCl 1.5 GM in Sodium Chloride 0.9% 250 ML 300 ML IVPB SCH (11:55)
[2019-05-19 17:19] VITALS: BP 115/69; TEMP 99
--- NOTE | 2019-05-20 14:59 | DIS ---
DATE OF ADMISSION: 05/14/2019 DATE OF DISCHARGE: 05/19/2019 DISCHARGE DISPOSITION: To inpatient rehabilitation. ADMISSION DIAGNOSIS: Septic right total hip arthroplasty. DISCHARGE DIAGNOSIS: Septic right total hip arthroplasty. OPERATIVE PROCEDURE: Revision right total hip arthroplasty. CONSULTANTS: [facility] and Dr. Jose D Sena. BRIEF CLINICAL HISTORY: Juan is a 74-year-old white male, who was admitted to [facility], underwent the above elective procedure on date of admission. Unfortunately, I had to perform a trochanteric osteotomy to revise the patient's stem of the right hip, and this was an extended surgery. His hospital course was about 5 days and ended up in inpatient rehabilitation due to the fact that we had to treat him with intravenous vancomycin. Dr. Sena was consulted, and the patient's cultures grew out Propionibacterium acnes. He was started on vancomycin, and also a vancomycin-impregnated prosthesis was placed. His hospital course was significant for difficulty reaching independence and ADLs. Therefore, rehabilitation consult was placed, and the patient transferred ultimately. At the time of transfer, he was afebrile, he was ambulatory with an assist, tolerating regular diet, and voiding. His incision is clean and closed without any erythema. He is neurovascularly intact in both lower extremities without any malrotation or shortening. DISCHARGE MEDICATIONS: Please see medication reconciliation form, but include IV vancomycin, which he will continue to receive. We will be happy to see the patient on an as needed basis between now and his next scheduled appointment. CONDITION ON DISCHARGE: Stable. PROGNOSIS: Good. Hemoglobin at the time of discharge is 7.7. Job ID: [id number]
--- NOTE | 2019-05-21 23:44 | PQF ---
[employer] HOLLY Lee JR, PRASADA [id number] [facility] [id number] CLINICAL DOCUMENTATION CLARIFICATION FORM: POST DISCHARGE Addendum to original discharge summary date: ____ Late entry note date: __ DATE:05/21/2019 ATTN:LUIGI CARRASQUILLO Please exercise your independent, professional judgment in responding to the clarification form. Clinical indicators are provided on the bottom of this form for your review Please check appropriate box(s): [ x ] Acute blood loss anemia [ ] Post-op anemia related to acute blood loss [ ] Anemia: [ ] Aplastic [ ] Nutritional [ ] Drug induced (specify) ___ [ ] Hemolytic [ ] Hereditary [ ] Acquired [ ] Autoimmune [ ] Non-autoimmune [ ] Enzyme disorder [ ] Chronic Anemia: [ ] Blood loss [ ] Hemolytic [ ] Simple [ ] Due to Vitamin B12 Deficiency [ ] Other [ ] Anemia of Chronic Disease (please specify) [ ] Anemia due to Neoplasm: [ ] Primary [ ] Secondary [ ] Anemia due to (please choose): [ ] Due to Chemotherapy [ ] Due to Radiotherapy [ ] Due to Immunotherapy [ ] Other diagnosis [ ] Unable to determine In addition, please specify: Present on Admission (POA): [ ] Yes [ ] No [ ] Unable to determine For continuity of documentation, please document condition throughout progress notes and discharge summary. Thank You. CLINICAL INDICATORS - SIGNS / SYMPTOMS / LABS - Blood loss: about 500- OP report, 05/14, Prieto Farias MD - HGB:12.4L -Pre OP, Laboratory 05/14- HGB:7.7L-Post op-Lab, 05/19 - HCT:37.8L- Pre OP, Laboratory 05/14- HCT: 23.7L-Post op-Lab, 05/19 - Prognosis: Hemoglobulin at the time of discahrge is 7.7-DS, 05/19, Kg Hussein-C - BP: 96/56-Consultation report, 05/15, Jaida Jeffery MD RISK FACTORS - Revision of right total hip arthroplasty with cemented-OP report, 05/14, Prieto Farias MD TREATMENTS: - Ferrous Gluconate.PO- MAR, 05/14 - Multivitamin.PO- MAR, 05/14 [employer] (This form is maintained as a part of the permanent medical record) 2014 [employer]. All Rights Reserved Shira Costa [not provided] [not provided] MTDD
== END 2019-05-19 18:04 | DRG 467 ==
LOC: SURG A 05-14 09:31
PROVIDERS: ADMIT Orthopaedic Surgery; ATTEND Orthopaedic Surgery
PROC: 0SR9049 Replacement of Right Hip Joint with Ceramic on Polyethylene Synthetic Substitute, Cemented, Open Approach (ICD-10-PCS; principal; 2019-05-14)
PROC: 0SP90JZ Removal of Synthetic Substitute from Right Hip Joint, Open Approach (ICD-10-PCS; 2019-05-14)
PROC: 0QS604Z Reposition Right Upper Femur with Internal Fixation Device, Open Approach (ICD-10-PCS; 2019-05-14)
PROC: 02HV33Z Insertion of Infusion Device into Superior Vena Cava, Percutaneous Approach (ICD-10-PCS; 2019-05-16)
PROC: B548ZZA Ultrasonography of Superior Vena Cava, Guidance (ICD-10-PCS; 2019-05-16)
DX: T84.51XA Infection and inflammatory reaction due to internal right hip prosthesis, initial encounter (principal); D62 Acute posthemorrhagic anemia; E78.5 Hyperlipidemia, unspecified; I10 Essential (primary) hypertension; E66.9 Obesity, unspecified; E11.9 Type 2 diabetes mellitus without complications; Y83.8 Other surgical procedures as the cause of abnormal reaction of the patient, or of later complication, without mention of misadventure at the time of the procedure; I25.10 Atherosclerotic heart disease of native coronary artery without angina pectoris; Z95.5 Presence of coronary angioplasty implant and graft; Z79.4 Long term (current) use of insulin; Z90.49 Acquired absence of other specified parts of digestive tract; Z68.32 Body mass index [BMI] 32.0-32.9, adult
CPT/HCPCS: 36415; 36416; 36569; 80048; 80202; 83605; 83880; 85025; 85027; 86850; 86900; 86901; 87070; 87076; 87205; C1713; C1751; C1776; J0690; J1644; J1885; J2250; J2405; J2704; J2795; J3010; J3260; J3370; J3490; J7050; Q0163; S0028